=== PATIENT | female | born 1960 ===

== ENCOUNTER 2024-11-03 08:53 | Outpatient (AMB) | payer OTHER, SELFPAY ==
--- OUTSIDE RECORDS SUMMARY | 2024-11-03 09:03 | XMS_ITS | Encounter Summary ---
Author Organization [employer] Address [address] [place] [address] [address] [place] [address] Care Team Providers Care Costume Design Teacher Name Role Phone Unavailable Primary Care Provider Unavailabl e Encounter Details Date Type Department Care Team (Latest Contact Info) Description 07/22/2021 Abstract [facility] CONVERSIONS Dental, Provider, DDS Social History Tobacco Use Types Packs/Day Years Used Date Smoking Tobacco: Never Assessed Comments Unknown Sex and Gender Information Value Date Recorded Sex Assigned at Female 06/09/2022 9:06 AM EST Legal Sex Female 5:34 PM EDT Gender Identity Female 06/09/2022 9:06 AM EST Sexual Orientation Straight 06/09/2022 9: 07 AM EST documented as of this encounter Plan of Treatment Upcoming Encounters Date Type Department Care Team (Late st Contact Info) Description 11/09/2024 9:30 AM EDT Office Visit [facility] [address] [place] [address] Shanell Lawton LLD [address] [place] [address] 03/09/2025 8:00 AM EST Office Visit [facility] DENT[facility] [address] [place] [address] Aracely Velazquez documented as of this encounter Visit Diagnoses Not on filedocumented in this encounter
--- OUTSIDE RECORDS SUMMARY | 2024-11-03 09:03 | XMS_ITS | Clinical Summary ---
Author Organization [facility] Address [address] [place] [address] Care Team Providers Care Converting Technician Name Role Phone Yoon Palomares Primary Care Provider [phone] Allergies Active Allergy Reactions Criticality Noted Date Comments Metformin Rash Low 05/07/2021 Medications cholecalciferol (VITAMIN D3) 1,000 unit tablet SMARTSI Tablet(s) By Mouth Daily 07/05/2022 Active atorvastatin (LIPITOR) 20 mg tablet SMARTSI Tablet(s) By Mouth Daily 07/06/2022 Active pioglitazone (ACTOS) 30 mg tablet Take 30 mg by mouth. 07/24/2022 Active atovaquone-prog uaniL (MALARONE) 250-100 mg Take 1 tablet by mouth once a day. Begin 2 days prior to trip and continue 7 days after return. 35 tablet 09/07/2022 Active Active Problems No known active problems Immunizations Immunization Administration Dates Next Due Hepatitis A Vaccine, Adult Dosage 09/04/2022 Meningococcal Polysaccharide (Groups A, C, Y, W-135) Tetanus Toxoid Conjugate (MenQuadfi) 09/04/2022 Pneumococcal Polysaccharide Vaccine, 23 Valent 0 09/12/2010 Typhoid Vi Capsular Polysaccharide Vaccine 09/04 Social History Tobacco Use Types Packs/Day Years Used Date Smoking Tobacco: Never Smokeless Tobacco: Never Alcohol Use Standard Drinks/Week Comments Never 0 (1 standard drink = 0.6 oz pur e alcohol) Comments Unknown Sex and Gender Information Value Date Recorded Sex Assigned at Not on file Legal Sex Female 10:49 AM EDT Gender Identity Not on file Sexual Orientation Not on file Last Filed Vital Signs Vital Sign Reading Time Taken Comments Blood Pressure 121/75 09/04/2022 10:36 AM EDT Pulse 89 09/04/2022 10:36 AM EDT Temperature 36.3 C (97.4 F) 09/04/2022 10:36 AM EDT Respiratory Rate 18 09/04/2022 10:36 AM EDT Oxygen Saturation 100% 09/04/2022 10:36 AM EDT Inhaled Oxygen Concentration - - Weight 86.6 kg (191 lb) 09/04/2022 10:36 AM EDT Height - - Body Mass Index - - Plan of Treatment Health Maintenance Due Date Last Done Comments Cervical Cancer Screening 1961 Cologuard 1961 Colon Cancer Screening 1961 Colonoscopy 1961 FOBT / Fit Test 1961 HIV Screening 1961 HPV and Pap Smear 1961 Pap Smear 1961 Sigmoidoscopy 1961 DTaP,Tdap,and Td Vaccines (1 - Tdap) 05/31/2007 05/30/2007 Pneumococcal Vaccine: 50+ Years (2 of 2 - PCV) 09/15/2011 09/12/2010 Zoster Vaccines (1 of 2) 09/15/2011 COVID-19 Vaccine (3 - season) 2023 10/06/2020, 09/15/2020 Alcohol/Substance Use Screening 04/26/2024 Influenza Vaccine (#1) 2024 , 02/22/2020, 03/10/2017, Additional history exists RSV Vaccine (60+ years old and patients) (1 - 1-dose 75+ series) 2036 Hepatitis B Vaccines Aged Out No long er eligible based on patient's age to complete this topic Insurance [facility] MEDICAID Care Teams Converting Technician Relationship Specialty Start Date End Date Yoon Palomares [address] [place] [id number] PCP - General Nurse Practitioner 08/21/22
[2024-11-03 09:08] VITALS: BP 131/59; PULSE 80; RESP 16; O2SAT 98; BMI 34.2
--- NOTE | 2024-11-03 09:08 | MHC.OFFVIS ---
Vital Signs 11/03/24 09:08 Height 5 ft 4 in Weight 199 lb BMI 34.2 BP 131/59 L Blood Pressure Location Lt brachial Position Sitting Respiration 16 Pulse 80 Pulse Source Pulse Oximeter Pulse Oximetry (%) 98 Oxygen Delivery Method Room Air Intake Visit Reasons: Disorder of Sacrum Mailroom Messenger Required: No Allergies metformin Adverse Reaction (Severe, Verified 11/03/24 09:09) Rash Medication List - Last Reconciled 11/03/24 by Clarita Rendon LPN amitriptyline 75 mg PO DAILY atorvastatin (Lipitor) 20 mg PO BEDTIME empagliflozin (Jardiance) 25 mg PO DAILY pioglitazone 30 mg PO DAILY HPI HPI Disorder of Sacrum: Details: History of Present Illness The patient is a 64-year-old female presenting with sacroiliac joint pain. She was referred by Dr. Angel Valdez and recently had an injection in the sacroiliac joint, which provided relief during the anesthetic phase but did not offer long-term relief. The patient has undergone five sacroiliac joint injections in total, with progressively diminishing relief over time. The patient also reports cervical radiculopathy, with pain radiating to her right arm. She has not previously engaged in physical therapy for this condition. Additionally, the patient has a history of carpal tunnel syndrome, having undergone two surgeries for release. Despite these interventions, she continues to experience pain in her fingers, particularly at night, which affects her ability to close her fingers. Pain Description - Pain score: >6/10 on average; daily - Duration: >1 year - Location: Axial low back - Sacroiliac joint pain onset was managed with injections, providing short-term relief for about 10-30 days. - Pain is described as mild after the initial relief period, with progressively less relief from subsequent injections. In total has had about 5 injections. - Cervical radiculopathy involves pain radiating to the right arm, with no prior physical therapy. - Carpal tunnel syndrome causes nighttime finger pain, affecting the ability to close fingers. Physical Exam - Appears afebrile. - Alert and oriented. - Mood and affect appropriate. - Follows and participates in conversation appropriately. - Respiratory effort is unlabored. - Able to transition from sit to stand unassisted. - Ambulates with bilaterally normal heel strike and toe off. - Able to stand and walk on toes and heels. Pain Management - Affect: Pain impacts daily activities, particularly at night, affecting sleep and hand function. - Analgesia: Previous sacroiliac joint injections provided short-term relief; considering peripheral nerve stimulator trial. - Activities of Daily Living: Pain interferes with hand function and sleep. [facility] Medical History (Updated 11/07/24 @ 10:42 by Ritesh Self MD) Sacroiliac joint pain Depression Hyperlipemia Diabetes Physical Exam Vital Signs: Last Vital Signs Pulse 80 11/03/24 09:08 Resp 16 11/03/24 09:08 BP 131/59 L 11/03/24 09:08 Pulse Ox 98 11/03/24 09:08 Oxygen Delivery Method Room Air 11/03/24 09:08 BMI result Body Mass Index 34.2 Assessment & Plan Assessment & Plan (1) Cervical radiculopathy: Code(s): M54.12 - Radiculopathy, cervical region Category: Medical (2) Sacroiliac joint pain: Code(s): M53.3 - Sacrococcygeal disorders, not elsewhere classified Category: Medical (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 - Referral for psychological evaluation to ensure suitability for PNS implantation. - Provide a prescription for physical therapy for cervical radiculopathy, to be completed at a location convenient for the patient. Patient was informed and verbally consented to the use of an ambient scribe for clinic note documentation during this visit. Discussion Notes I discussed with the patient the option of a peripheral nerve stimulator for her sacroiliac joint pain, explaining the process of psychological clearance, trial, and potential implantation. We also discussed the referral for physical therapy for her cervical radiculopathy, and I provided her with a prescription to be used at a convenient location. Patient Instructions - Await a call for psychological evaluation for the peripheral nerve stimulator trial. - Use the prescription provided to arrange physical therapy for cervical radiculopathy at a convenient location. 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
== END 2024-11-03 09:49 | disposition home or self-care (01) ==
PROVIDERS: PCP Nurse Practitioner Family; Referring Provider Physical Medicine & Rehabilitation; Visit Provider Internal Medicine
DX: M54.12 Radiculopathy, cervical region (principal); M53.3 Sacrococcygeal disorders, not elsewhere classified
CPT/HCPCS: 99204

== ENCOUNTER → 2024-11-03 08:53 | Outpatient (BNVA) | payer OTHER, SELFPAY | PROVIDERS: PCP Nurse Practitioner Family; Referring Provider Physical Medicine & Rehabilitation; Visit Provider Internal Medicine | DX: M54.12 Radiculopathy, cervical region (principal); M53.3 Sacrococcygeal disorders, not elsewhere classified | CPT/HCPCS: 99202 ==